=== PATIENT | male | born 1990 | race Caucasian/White ===

== ENCOUNTER 2016-11-19 09:48 | Emergency (ER) | payer OTHER, MEDICAID ==
[~2016-11-19] VITALS: Ht 175.3 cm; Wt 81.6 kg
[2016-11-19 10:06] LABS: Urine RBC None Seen /hpf (0 - 3)
[2016-11-19 10:24] LABS: Urine Bilirubin Negative (Negative); Urine Blood Negative /uL (Negative); Urine Color Yellow (Yellow); Urine Glucose Normal (Normal); Urine Ketone Negative (Negative); Urine Mucus FEW (None Seen); Urine Nitrite Negative (Negative); Urine Urobilinogen Normal (Negative)
[2016-11-19] MEDS ORDERED: IOHEXOL 300 MG/ML 100ML BOTTLE IJ ONE (10:26)
[2016-11-19] MEDS ORDERED: MORPHINE SULF INJ 2 MG/ML SYRINGE 1ML IM ONE (10:30)
[2016-11-19] MEDS ORDERED: MORPHINE SULF INJ 2 MG/ML SYRINGE 1ML IV ONE (10:45)
[2016-11-19 10:52] LABS: Albumin 3.9 g/dL (3.4-5.0); BUN/Creatinine Ratio 16.7; Bilirubin, Total 0.4 mg/dL (0.2-1.0); Calcium 8.6 mg/dL (8.5-10.1); Potassium 4.1 mmol/L (3.5-5.1); Total Protein 7.2 g/dL (6.4-8.2)
[2016-11-19 11:03] LABS: Basophils # (auto) 0 uL; Basophils % (auto) 0.6 % (0.0-2.0); Eosinophils # (auto) 0.1 uL; Eosinophils % (auto) 1.2 % (0.0-7.0); Hemoglobin 14.3 g/dL (13.5-17.5); Lymphocytes # (auto) 2.1 uL; Lymphocytes % (auto) 40.1 % (10.0-50.0); Mean Corpuscular Hemoglobin 29.5 pg (28.0-32.0); Mean Corpuscular Hgb Conc. 33.3 g/dL (32.0-36.0); Mean Corpuscular Volume 88.6 fL (80.0-100.0); Mean Platelet Volume 9.2 fL (7.4-10.4); Monocytes # (auto) 0.3 uL; Monocytes % (auto) 6.5 % (0.0-12.0); Neutrophils # (auto) 2.7 uL; Neutrophils % (auto) 51.6 % (37.0-80.0); Platelet Count (auto) 223 10^3/uL (140-450); Red Cell Distribution Width 14.2 % (11.6-16.0); White Blood Cell 5.2 10^3/uL (4.4-10.8)
[2016-11-19 11:17] VITALS: BP 121/70
== END 2016-11-19 13:16 | disposition home or self-care (01) ==
LOC: ER 09:48
DX: K52.9 Noninfective gastroenteritis and colitis, unspecified (principal); Z87.442 Personal history of urinary calculi
CPT/HCPCS: 36415; 74177; 80053; 81001; 85025; 94761; 96374; 99285; G0434; J2270; Q9967

== ENCOUNTER 2018-08-21 20:22 | Emergency (ER) | payer OTHER, MEDICAID ==
[~2018-08-21] VITALS: Ht 175.3 cm; Wt 90.7 kg
[2018-08-21 21:15] LABS: Basophils # (auto) 0 uL; Basophils % (auto) 0.5 % (0.0-2.0); Eosinophils # (auto) 0.2 uL; Eosinophils % (auto) 1.9 % (0.0-7.0); Hematocrit 50.5 % (41.0-53.0); Hemoglobin 16.9 g/dL (13.5-17.5); Lymphocytes # (auto) 1.8 uL; Lymphocytes % (auto) 17.7 % (10.0-50.0); Mean Corpuscular Hemoglobin 30.9 pg (28.0-32.0); Mean Corpuscular Hgb Conc. 33.4 g/dL (32.0-36.0); Mean Corpuscular Volume 92.3 fL (80.0-100.0); Monocytes # (auto) 0.9 uL; Monocytes % (auto) 8.6 % (0.0-12.0); Neutrophils # (auto) 7.1 uL; Neutrophils % (auto) 71.3 % (37.0-80.0); Nucleated Red Blood Cells % 0.1 %; Platelet Count (auto) 253 10^3/uL (140-450); Red Blood Cells 5.47 10^6/uL (4.5-5.90); Red Cell Distribution Width 14.4 % (11.8-14.3)
[2018-08-21 21:33] LABS: Albumin 4.5 g/dL (3.4-5.0); Alcohol, Urine < 3.0 mg/dL (0-5); Amphetamine Screen, Urine NEGATIVE (NEGATIVE); Anion Gap 7 (5-15); Barbiturate Scree,Urine NEGATIVE (NEGATIVE); Benzodiazephine Screen, Urine NEGATIVE (NEGATIVE); Blood Urea Nitrogen 14 mg/dL (7-18); Cannabinoid Screen, Urine POSITIVE (NEGATIVE); Carbon Dioxide 24 mmol/L (21-32); Chloride 106 mmol/L (98-107); Cocaine Screen, Urine POSITIVE (NEGATIVE); Glucose 102 mg/dL (74-106); Lipase 415 U/L (73-393); Opiate Scree,Urine NEGATIVE (NEGATIVE); Phencyclidine Screen, Urine NEGATIVE (NEGATIVE); Potassium 3.8 mmol/L (3.5-5.1); Sodium 137 mmol/L (136-145)
[2018-08-21 21:36] LABS: Urine Bacteria NONE SEEN /hpf (None Seen); Urine Blood Negative /uL (Negative); Urine Mucus FEW (None Seen); Urine Specific Gravity 1.025 (1.001-1.035); Urine WBC <1 /hpf (0 - 3)
[2018-08-21 21:37] LABS: Alanine Aminotransferase 135 U/L (16-61); Alkaline Phosphatase 129 U/L (45-117); Aspartate Aminotransferase 90 U/L (15-37); BUN/Creatinine Ratio 11.5; Bilirubin, Total 0.8 mg/dL (0.2-1.0); GFR African American > 60 mL/min; GFR Non-African American > 60 mL/min; Total Protein 8.5 g/dL (6.4-8.2)
[2018-08-22] MEDS ORDERED: ONDANSETRON HCL 4 MG/2 ML VIAL IV ONE ×2 (01:00→04:30)
[2018-08-22] MEDS ORDERED: MORPHINE SULFATE 10 MG/ML INJ 1ML SDV IV ONE (01:00)
[2018-08-22 04:24] VITALS: BP 126/41
[2018-08-22] MEDS ORDERED: KETOROLAC TROMETH 30 MG/ML 1ML VIAL IV ONE (04:30)
== END 2018-08-22 05:17 | disposition home or self-care (01) ==
LOC: ER 20:30
DX: N20.0 Calculus of kidney (principal); F19.10 Other psychoactive substance abuse, uncomplicated; R07.9 Chest pain, unspecified
CPT/HCPCS: 36415; 71045; 74176; 80053; 80307; 81001; 83690; 83735; 85025; 96374; 96375; 96376; 99284; J1885; J2270; J2405; J7030

== ENCOUNTER 2019-02-27 21:20 | Emergency (ER) | payer OTHER, MEDICAID ==
[~2019-02-27] VITALS: Ht 170.2 cm; Wt 90.7 kg
[2019-02-28] MEDS ORDERED: MORPHINE SULF INJ 2 MG/ML SYRINGE 1ML IM ONE (03:30)
[2019-02-28] MEDS ORDERED: ONDANSETRON ODT 4 MG TAB PO ONE (03:30)
[2019-02-28 06:00] VITALS: BP 99/63
== END 2019-02-28 06:25 | disposition home or self-care (01) ==
LOC: EDSEX 21:20 → EDBD 21:20 → ER 21:23
DX: R55 Syncope and collapse (principal); M54.2 Cervicalgia; R51 Headache
CPT/HCPCS: 36415; 71045; 82550; 96372; 99284; J2270; Q0162

== ENCOUNTER 2019-07-02 16:04 | Inpatient (IN) | payer MEDICAID, OTHER ==
[~2019-07-02] VITALS: Ht 175.3 cm; Wt 105.1 kg
[2019-07-02 16:45] LABS: Urine Bacteria NONE SEEN /hpf (None Seen); Urine Blood Negative /uL (Negative); Urine Specific Gravity 1.013 (1.001-1.035); Urine WBC <1 /hpf (0 - 3)
[2019-07-02 16:55] LABS: Basophils # (auto) 0.1 uL; Basophils % (auto) 0.5 % (0.0-2.0); Eosinophils # (auto) 0.2 uL; Eosinophils % (auto) 1.5 % (0.0-7.0); Hematocrit 48.6 % (41.0-53.0); Hemoglobin 16.7 g/dL (13.5-17.5); Lymphocytes # (auto) 1.6 uL; Lymphocytes % (auto) 14.5 % (10.0-50.0); Mean Corpuscular Hemoglobin 30.5 pg (28.0-32.0); Mean Corpuscular Hgb Conc. 34.4 g/dL (32.0-36.0); Mean Corpuscular Volume 88.6 fL (80.0-100.0); Monocytes # (auto) 0.7 uL; Monocytes % (auto) 6.5 % (0.0-12.0); Neutrophils # (auto) 8.3 uL; Nucleated Red Blood Cells % 0.1 %; Platelet Count (auto) 227 10^3/uL (140-450); Red Blood Cells 5.48 10^6/uL (4.5-5.90); Red Cell Distribution Width 13.8 % (11.8-14.3); White Blood Cell 10.8 10^3/uL (4.4-10.8)
[2019-07-02 17:11] LABS: Albumin 4.5 g/dL (3.4-5.0); Anion Gap 7 (5-15); BUN/Creatinine Ratio 10.2; Blood Urea Nitrogen 13 mg/dL (7-18); Calcium 8.8 mg/dL (8.5-10.1); Carbon Dioxide 25 mmol/L (21-32); Chloride 107 mmol/L (98-107); GFR African American 86 mL/min; GFR Non-African American 71 mL/min; Glucose 103 mg/dL (74-106); Potassium 3.6 mmol/L (3.5-5.1); Sodium 139 mmol/L (136-145)
[2019-07-02 17:15] LABS: Alanine Aminotransferase 64 U/L (16-61); Alkaline Phosphatase 88 U/L (45-117); Aspartate Aminotransferase 41 U/L (15-37); Bilirubin, Total 0.8 mg/dL (0.2-1.0); Total Protein 8.6 g/dL (6.4-8.2)
[2019-07-02] MEDS ORDERED: ALBUTEROL SULF 2.5 MG/0.5ML(0.5%) NEB SOLN NEB ONE ×4 (17:15→19:00)
[2019-07-02] MEDS ORDERED: SODIUM CHLORIDE 0.9% 1,000 ML IV ONE ×4 (17:15→21:30)
[2019-07-02] MEDS ORDERED: IPRATROPIUM BROM 0.5 MG/2.5ML INH SOL NEB ONE ×4 (17:15→19:00)
[2019-07-02] MEDS ORDERED: methylPREDNISolone SOD SUCC 125 MG/2 ML VL IV ONE (17:45)
[2019-07-02] MEDS ORDERED: KETOROLAC TROMETH 30 MG/ML 1ML VIAL IV ONE (18:15)
[2019-07-02] MEDS ORDERED: LORazepam 0.5 MG TAB PO ONE (19:00)
[2019-07-02] MEDS ORDERED: MAGNESIUM SULFATE 1GM/100ML 100 ML IV ONE (20:15)
[2019-07-02] MEDS ORDERED: MORPHINE SULFATE 4 MG/ML SYR/VIAL IV ONE (20:30)
[2019-07-02] MEDS ORDERED: ONDANSETRON HCL 4 MG/2 ML VIAL IV ONE (20:30)
[2019-07-02 20:44] LABS: INR 1.03 (0.9-1.15); Partial Thromboplastin Time 27.2 sec (23.64-32.05)
[2019-07-02] MEDS ORDERED: TEMAZEPAM 15 MG CAP PO PRN (21:00)
[2019-07-02] MEDS ORDERED: ACETAMINOPHEN 325 MG TAB PO PRN (21:00)
[2019-07-02] MEDS ORDERED: ONDANSETRON HCL 4 MG/2 ML VIAL IV PRN (21:00)
[2019-07-02 21:46] LABS: Alcohol, Urine < 3.0 mg/dL (0-5); Amphetamine Screen, Urine NEGATIVE (NEGATIVE); Barbiturate Scree,Urine NEGATIVE (NEGATIVE); Benzodiazephine Screen, Urine NEGATIVE (NEGATIVE); Cannabinoid Screen, Urine POSITIVE (NEGATIVE); Cocaine Screen, Urine NEGATIVE (NEGATIVE); Opiate Scree,Urine NEGATIVE (NEGATIVE); Phencyclidine Screen, Urine NEGATIVE (NEGATIVE)
--- NOTE | 2019-07-02 22:09 | NUR ---
[facility] admit from ER ANSHU MARCOS admitted to [facility] Patient oriented to KAROL PRETTY RN primary RN, unit, room, bed, and unit policies regarding patient care and visiting hours. Patient weighed by bedscale and encouraged to call if they need something. All questions and concerns addressed, patient verbalized understanding. Bed in low position and call light within reach.
--- NOTE | 2019-07-02 22:09 | NUR ---
patient has left toe nail becoming detached. patient reports no pain. color around skin area is normal no signs of redness or draining. Wound care photos taken per protocol.
[2019-07-02 22:52] VITALS: BP 130/77
[2019-07-02] MEDS: FAMOTIDINE 20 MG TAB PO SCH (23:25)
[2019-07-02] MEDS: cefTRIAXone 1GM/50ML D5W 50 ML IV SCH (23:25)
[2019-07-02 23:30] VITALS: BP 124/76
[2019-07-02] MEDS ORDERED: INFLUENZA QUAD 2019-2020 0.5ml SYRG IM ONE (23:45)
[2019-07-02] MEDS: ALBUTEROL SULF 2.5 MG/0.5ML(0.5%) NEB SOLN NEB SCH (23:49)
[2019-07-02] MEDS: HYDROcodone-ACET 5/325MG TAB PO PRN (23:54)
[2019-07-03] VITALS (8 sets, daily range): BP systolic 106–132; BP diastolic 56–72
--- NOTE | 2019-07-03 00:30 | NUR ---
RT NOTE SPOKE WITH HOSPITALIST JOHN HOLLY NP ABOUT RESPIRATORY ORDER. REQUESTING PFT NOT 6 MINUTE WALK. LET HIM KNOW THAT PFT NEEDS TO BE SCHEDULED OUT PATIENT. OK TO CANCEL CURRENT ORDER
--- NOTE | 2019-07-03 02:00 | NUR ---
patient reported pain 7/10 flank pain. provided patient with hot pack.
--- NOTE | 2019-07-03 02:40 | NUR ---
pain reassessed patient stated "the hot pack helped with the pain" 01/13
--- NOTE | 2019-07-03 06:15 | NUR ---
paged hospitalist. patient reporting 10/10 pain aching flank pain, nonradiating. Informed patient norco medication is available, per patient" if i do not get anything else for pain i am going to walk down stairs to get it myself."
--- NOTE | 2019-07-03 06:24 | NUR ---
received new orders from hospitalist. 15mg toradol IV times one.
[2019-07-03] MEDS ORDERED: KETOROLAC TROMETH 30 MG/ML 1ML VIAL IV ONE (06:30)
[2019-07-03 06:39] LABS: BUN/Creatinine Ratio 10.4; Basophils # (auto) 0 uL; Basophils % (auto) 0.3 % (0.0-2.0); Calcium 8.6 mg/dL (8.5-10.1); Eosinophils # (auto) 0 uL; Eosinophils % (auto) 0.1 % (0.0-7.0); Hematocrit 43.9 % (41.0-53.0); Hemoglobin 15.1 g/dL (13.5-17.5); Lymphocytes # (auto) 0.7 uL; Lymphocytes % (auto) 5.3 % (10.0-50.0); Mean Corpuscular Hemoglobin 30.5 pg (28.0-32.0); Mean Corpuscular Hgb Conc. 34.5 g/dL (32.0-36.0); Mean Corpuscular Volume 88.5 fL (80.0-100.0); Monocytes # (auto) 0.2 uL; Monocytes % (auto) 1.5 % (0.0-12.0); Neutrophils # (auto) 12.3 uL; Neutrophils % (auto) 92.8 % (37.0-80.0); Nucleated Red Blood Cells % 0.1 %; Platelet Count (auto) 229 10^3/uL (140-450); Potassium 3.9 mmol/L (3.5-5.1); Red Blood Cells 4.96 10^6/uL (4.5-5.90); Red Cell Distribution Width 13.9 % (11.8-14.3); White Blood Cell 13.2 10^3/uL (4.4-10.8)
[2019-07-03] MEDS: ALBUTEROL SULF 2.5 MG/0.5ML(0.5%) NEB SOLN NEB SCH ×3 (06:51→17:28)
--- NOTE | 2019-07-03 07:30 | NUR ---
Endorsed care to dayshift rn. informed rn of patients left toe and picture was taken. Patient is in bed talking to roommate showing no signs of distress or sob.
--- NOTE | 2019-07-03 07:45 | NUR ---
Opening Shift Note Assumed care of patient, awake and alert. No S/S of distress/SOB or pain. Instructed on POC and to call for assist PRN, bed in locked and lowest position and call light within reach. Will continue to monitor for changes Q1hr and PRN.
[2019-07-03] MEDS: cefTRIAXone 1GM/50ML D5W 50 ML IV SCH (09:12)
[2019-07-03] MEDS: FAMOTIDINE 20 MG TAB PO SCH ×2 (09:12→22:02)
[2019-07-03] MEDS: IPRATROPIUM BROM 0.5 MG/2.5ML INH SOL NEB PRN ×3 (11:02→23:30)
[2019-07-03] MEDS: HYDROcodone-ACET 5/325MG TAB PO PRN ×2 (11:57→20:01)
--- NOTE | 2019-07-03 12:57 | NUR ---
Paged Dr. Hallman, patients unhappy with pain management and wants to leave AMA. Repositioned patient and applied hot pack for patient comfort.
[2019-07-03] MEDS ORDERED: SODIUM CHLORIDE 0.9% 1,000 ML IV ONE (15:00)
[2019-07-03] MEDS: SODIUM CHLORIDE 0.9% 1,000 ML IV SCH (15:00)
[2019-07-03] MEDS: MORPHINE SULF INJ 2 MG/ML SYRINGE 1ML IV PRN ×2 (15:25→22:02)
--- NOTE | 2019-07-03 19:40 | NUR ---
Opening Shift Note Assumed care of patient, awake, AAOx4. No S/S of distress/SOB. C/O pain 03/15 to ABD. On room air and ambulatory. Bed in lowest locked position, side rails up x2, call light within reach. Instructed on POC and to call for assist PRN, will continue to monitor for changes Q1hr and PRN.
[2019-07-04] MEDS: SODIUM CHLORIDE 0.9% 1,000 ML IV SCH ×2 (01:08→11:00)
[2019-07-04] MEDS: MORPHINE SULF INJ 2 MG/ML SYRINGE 1ML IV PRN ×2 (04:26→11:07)
[2019-07-04 06:00] VITALS: BP 121/84
[2019-07-04] MEDS: IPRATROPIUM BROM 0.5 MG/2.5ML INH SOL NEB PRN ×2 (07:03→11:46)
[2019-07-04] MEDS: ALBUTEROL SULF 2.5 MG/0.5ML(0.5%) NEB SOLN NEB SCH ×2 (07:03→11:46)
[2019-07-04 07:26] LABS: Basophils # (auto) 0.1 uL; Eosinophils # (auto) 0.1 uL; Hematocrit 41.1 % (41.0-53.0); Hemoglobin 13.8 g/dL (13.5-17.5); Lymphocytes # (auto) 2.5 uL; Lymphocytes % (auto) 24.1 % (10.0-50.0); Mean Corpuscular Hemoglobin 29.9 pg (28.0-32.0); Mean Corpuscular Hgb Conc. 33.7 g/dL (32.0-36.0); Mean Corpuscular Volume 88.7 fL (80.0-100.0); Monocytes # (auto) 0.6 uL; Monocytes % (auto) 5.8 % (0.0-12.0); Neutrophils # (auto) 7.1 uL; Neutrophils % (auto) 68.1 % (37.0-80.0); Platelet Count (auto) 192 10^3/uL (140-450); Red Blood Cells 4.63 10^6/uL (4.5-5.90); Red Cell Distribution Width 13.9 % (11.8-14.3); White Blood Cell 10.5 10^3/uL (4.4-10.8)
--- NOTE | 2019-07-04 07:45 | NUR ---
Opening Shift Note Assumed care of patient, awake and alert in bed. No S/S of distress/SOB or pain. Instructed on POC and to call for assist PRN, call light within reach and bed in locked and lowest position. Will continue to monitor for changes Q1hr and PRN.
[2019-07-04 07:47] LABS: BUN/Creatinine Ratio 14.4; Potassium 3.9 mmol/L (3.5-5.1)
[2019-07-04 08:00] VITALS: BP 124/62
[2019-07-04] MEDS: FAMOTIDINE 20 MG TAB PO SCH (08:47)
[2019-07-04] MEDS: cefTRIAXone 1GM/50ML D5W 50 ML IV SCH (08:47)
[2019-07-04 09:00] VITALS: BP 124/62
--- NOTE | 2019-07-04 10:32 | NUR ---
Spoke to Dr. Rocael Ku, orders received and carried out.
[2019-07-04] MEDS ORDERED: methylPREDNISolone SOD SUCC 125 MG/2 ML VL IV ONE (10:45)
[2019-07-04 13:00] VITALS: BP 125/67
[2019-07-04] MEDS ORDERED: LEVOFLOXACIN 500MG 100 ML IV SCH (14:00)
[2019-07-04] MEDS ORDERED: IPRIH IN (16:29)
[2019-07-04] MEDS ORDERED: LEVO500T21 PO (16:29)
[2019-07-04] MEDS ORDERED: ALBUAER3 IN (16:29)
[2019-07-04] MEDS ORDERED: METH4PAK PO (16:29)
[2019-07-04 17:00] VITALS: BP 143/75
[2019-07-04 17:18] VITALS: BP 143/75
--- NOTE | 2019-07-04 17:45 | NUR ---
Discharge instructions given as ordered. Encourage to follow up with PMD and Dr. Ocampo, as instructed. All questions and concerns addressed. Patient verbalized understanding. Medication reconciliation form completed and copy given to patient. Patient refused vaccines. IV removed with catheter intact and pressure dressing applied.
--- NOTE | 2019-07-04 18:21 | NUR ---
Patient taken to vehicle via wheelchair with all personal belongings, accompanied by staff and family member. No distress noted at time of departure.
[2019-07-04] MEDS ORDERED: methylPREDNISolone SOD SUCC 40 MG/ML VL IV SCH (22:00)
== END 2019-07-04 17:45 | disposition home health service (06) | DRG 145 ==
LOC: ER 16:04 → OVERFLOW 16:05 → WEST WING 22:09
PROVIDERS: ADMIT Nurse Practitioner; ATTEND Nurse Practitioner
DX: J20.9 Acute bronchitis, unspecified (principal); J18.9 Pneumonia, unspecified organism; J45.902 Unspecified asthma with status asthmaticus; R65.10 Systemic inflammatory response syndrome (SIRS) of non-infectious origin without acute organ dysfunction; N20.0 Calculus of kidney; E66.9 Obesity, unspecified; F12.90 Cannabis use, unspecified, uncomplicated; Z68.34 Body mass index [BMI] 34.0-34.9, adult; R79.89 Other specified abnormal findings of blood chemistry; J01.00 Acute maxillary sinusitis, unspecified; Z80.6 Family history of leukemia; Z82.3 Family history of stroke; Z87.442 Personal history of urinary calculi
CPT/HCPCS: 36415; 71046; 74176; 76775; 80048; 80053; 80307; 80320; 81001; 82550; 82553; 83735; 83874; 83880; 84484; 85025; 85379; 85610; 85730; 87040; 87804; 93005; 94640; 96361; 96374; 96375; G0378; J0696; J1885; J1956; J2405

== ENCOUNTER 2019-07-08 08:55 | Emergency (ER) | payer MEDICAID ==
[~2019-07-08] VITALS: Ht 175.3 cm; Wt 90.7 kg
[~2019-07-08 08:55] MED LIST: ALBUAER3 IN; IPRIH IN; LEVO500T21 PO; METH4PAK PO
[2019-07-08] MEDS ORDERED: KETOROLAC TROMETH 30 MG/ML 1ML VIAL IV ONE (10:15)
[2019-07-08] MEDS ORDERED: HYDROcodone-ACET 5/325MG TAB PO ONE (12:00)
[2019-07-08] MEDS ORDERED: CARISOPRODOL 350 MG TAB PO ONE (14:00)
[2019-07-08 14:13] VITALS: BP 130/64
== END 2019-07-08 14:14 | disposition home or self-care (01) ==
LOC: ER 08:59
DX: S29.012A Strain of muscle and tendon of back wall of thorax, initial encounter (principal); R07.89 Other chest pain; Z87.442 Personal history of urinary calculi; X58.XXXA Exposure to other specified factors, initial encounter; Y93.89 Activity, other specified; Y92.89 Other specified places as the place of occurrence of the external cause; Y99.8 Other external cause status
CPT/HCPCS: 71045; 71250; 96374; 99284; J1885; J7030